=== PATIENT | female | born 1945 | race African-American/Black ===

== ENCOUNTER 2018-11-03 15:49 | Emergency (ER) | payer OTHER, BC ==
[~2018-11-03] VITALS: Ht 157.5 cm; Wt 83.5 kg
[~2018-11-03 15:49] MED LIST: ADVAIR 250-501 EACH INH; ALLEGRA-D 24 H1 EACH PO; ATROPINE 1% EYE D11; AVELOX 400 MG400 M1 PO; AZASAN75 MG PO; B-125000 MCG/1 SL; BIOTIN-D1 GM MC; BUTALB-APAP-CA1 EACH PO; CALCIUM 600 +1 EAC1 PO; DUREZOL5 ML OP; FISH OIL 1,001000 M2 PO; FISH OIL500 MG PO; FLONASE 0.05%50 MCG NASAL; FLOXIN OTI0.3 %/5 M1 OT; HYDROCODONE-AP1 EAC6 PO; MOBIC7.5 MG PO; MURO-128 5% OPH15 M1 OP; PAROXETINE HCL30 MG PO; PROAIR HFA8.5 GM INH; PROTONIX40 M1 PO; SYSTANE 0.3-0.1 EACH OPHTHALMIC; VITAMIN D2000 UNI2 PO; ZOCOR20 MG PO
[2018-11-03] MEDS ORDERED: DICLOFENAC SODI75 MG PO (16:32)
[2018-11-03] MEDS ORDERED: IRON325 PO (16:32)
[2018-11-03] MEDS ORDERED: COLACE100 MG PO (16:32)
[2018-11-03] MEDS ORDERED: MURO-12815 ML/BOT OPHTHALMIC (16:33)
[2018-11-03] MEDS ORDERED: SYSTANE 0.3-0.415 ML OPHTHALMIC (16:33)
[2018-11-03] MEDS ORDERED: LUMIFY2.5 ML OTIC (16:33)
[2018-11-03] MEDS ORDERED: TRIAMCINOLONE A80 G2 TOP (16:34)
[2018-11-03 16:42] LABS: ABSOLUTE EOSINOPHILS 0.5 thou/uL (0.0-0.7); ABSOLUTE LYMPHOCYTES 1.1 thou/uL (0.8-5.3); ABSOLUTE MONOCYTES 0.4 thou/uL (0.0-1.2); ABSOLUTE NEUTROPHILS 4.7 thou/uL (1.6-8.1); BASOPHILS 0.5 %; EOSINOPHILS 7.8 %; HEMATOCRIT 39.6 % (37.0-47.0); HEMOGLOBIN 13.2 gm/dL (12.0-15.0); MCH 30.2 pg (26.0-34.0); MCHC 33.4 g/dL (28.0-37.0); MCV 90.2 fL (80.0-100.0); MONOCYTES 5.8 %; MPV 7.7 fl. (7.2-11.1); NUCLEATED RBCS 0 /100WBC; PLATELET COUNT* 294 thou/uL (150-400); POLYS 69.9 %; RBC 4.39 mil/uL (4.20-5.00); RDW-CV 13.3 % (10.5-14.5); WBC 6.7 thou/uL (4.0-11.0)
[2018-11-03 16:59] LABS: ALBUMIN 3.5 g/dL (3.4-5.0); ALKALINE PHOSPHATASE 67 U/L (46-116); ANION GAP 2 mmol/L (7-16); BUN 10 mg/dL (7-18); CALCIUM 8.4 mg/dL (8.5-10.1); CHLORIDE 108 mmol/L (98-107); CO2 31 mmol/L (21-32); CREATININE 0.8 mg/dL (0.6-1.3); GLUCOSE 100 mg/dL (70-99); POTASSIUM 3.4 mmol/L (3.5-5.1); SGOT 16 U/L (15-37); SGPT 18 U/L (30-65); SODIUM 141 mmol/L (136-145); TOTAL BILIRUBIN 0.5 mg/dL (<0.1-1.0); TOTAL PROTEIN 7.7 g/dL (6.4-8.2); TROPONIN-I LEVEL <0.06 ng/mL (<0.06)
[2018-11-03 17:01] LABS: INFLUENZA A ANTIGEN None Detected (None Detect); INFLUENZA B ANTIGEN None Detected (None Detect)
[2018-11-03] MEDS ORDERED: ZPAK PO (17:23)
[2018-11-03] MEDS ORDERED: TESSALON PERLE100 MG PO (17:37)
[2018-11-03 17:40] VITALS: BP 132/56
--- NOTE | 2018-11-04 15:05 | EKG ---
[place] [address] ELECTROCARDIOGRAM REPORT Name: DENISSE BOLDEN Room: [facility]#: [id number] Admission: 11/03/18 Attend Phys: Discharge: 11/03/18 Date of : 43 Report #: [id number] THIS REPORT FOR: //name// [facility] ED Test Date: 2018-11-03 Test Time: 16:57:54 Pat Name: DENISSE BOLDEN Department: Room: Gender: F Media Consultant Outside Sales: Capo MCQUEEN : 1945 Requested By: Roxie Carbajal Order Number: [id number] MD: Sanchez Alvarenga Measurements Intervals [place] Rate: 73 P: 0 MT: 179 QRS: 4 QRSD: 87 T: 108 QT: 401 QTc: 442 Interpretive Statements Sinus rhythm Nonspecific T abnormalities, lateral leads Compared to ECG 12/13/2014 10:47:22 T-wave abnormality now present Electronically Signed On 11-04-2018 15:05:10 CDT by Sanchez Alvarenga [email or web address] <ELECTRONICALLY SIGNED> By: Sanchez Alvarenga MD, [facility] 11/04/18 1505 [id number] Sanchez Alvarenga MD, [facility] /EPI
== END 2018-11-03 17:42 | disposition home or self-care (01) ==
LOC: M.ERS 15:49
PROVIDERS: Nurse Practitioner Family
DX: J06.9 Acute upper respiratory infection, unspecified (principal); J45.909 Unspecified asthma, uncomplicated; E05.90 Thyrotoxicosis, unspecified without thyrotoxic crisis or storm; Z90.710 Acquired absence of both cervix and uterus; Z88.2 Allergy status to sulfonamides; Z88.1 Allergy status to other antibiotic agents; Z88.8 Allergy status to other drugs, medicaments and biological substances

== ENCOUNTER 2019-01-18 13:09 | Emergency (ER) | payer OTHER, BC ==
[~2019-01-18] VITALS: Ht 160 cm; Wt 81.7 kg
[~2019-01-18 13:09] MED LIST changes: +COLACE100 MG PO; +DICLOFENAC SODI75 MG PO; +IRON325 PO; +LUMIFY2.5 ML OTIC; +MURO-12815 ML/BOT OPHTHALMIC; +SYSTANE 0.3-0.415 ML OPHTHALMIC; +TESSALON PERLE100 MG PO; +TRIAMCINOLONE A80 G2 TOP; +ZPAK PO
[2019-01-18 14:35] VITALS: BP 131/58
== END 2019-01-18 14:37 | disposition home or self-care (01) ==
LOC: M.ERS 13:09
DX: M25.571 Pain in right ankle and joints of right foot (principal); M25.572 Pain in left ankle and joints of left foot; J45.909 Unspecified asthma, uncomplicated; E21.3 Hyperparathyroidism, unspecified; Z88.2 Allergy status to sulfonamides; Z88.1 Allergy status to other antibiotic agents; Z88.8 Allergy status to other drugs, medicaments and biological substances; Z90.710 Acquired absence of both cervix and uterus; Z86.2 Personal history of diseases of the blood and blood-forming organs and certain disorders involving the immune mechanism; Z86.73 Personal history of transient ischemic attack (TIA), and cerebral infarction without residual deficits